=== PATIENT | female | born 1990 | race Two or more races ===

== ENCOUNTER 2021-07-30 03:11 | Emergency (ER) | payer MEDICAID ==
[~2021-07-30] VITALS: Ht 165.1 cm; Wt 104.3 kg
[2021-07-30 03:12] VITALS: BP 132/78
[2021-07-30] MEDS ORDERED: hydrOXYzine 25 MG TAB or CAP PO ONE (04:00)
[2021-07-30] MEDS ORDERED: ALPRAZolam 0.5 MG TAB PO ONE (05:00)
== END 2021-07-30 05:31 | disposition home or self-care (01) ==
LOC: ER 03:11
DX: F41.8 Other specified anxiety disorders (principal); E66.9 Obesity, unspecified; Z68.35 Body mass index [BMI] 35.0-35.9, adult